=== PATIENT | female | born 1995 | race Caucasian/White ===

== ENCOUNTER 2018-12-04 14:38 | Emergency (ER) | payer BC ==
[2018-12-04] MEDS ORDERED: IPRATROPIUM/ALBUTEROL 3 ML DEYVIAL ONE (15:12)
[2018-12-04] MEDS ORDERED: methylPREDNISolone SOD SUCC 125 MG/2 ML VIAL ONE (15:48)
[2018-12-04] MEDS ORDERED: ALBUTEROL 3 ML DEYVIAL ONE (15:49)
[2018-12-04] MEDS ORDERED: NS 1,000 ML IV ONE (17:59)
[2018-12-04] MEDS ORDERED: ALBUTEROL 3 ML DEYVIAL IH ONE (18:00)
[2018-12-04] MEDS ORDERED: OSELTAMIVIR PHOSPHATE 75 MG CAP PO ONE ×2 (18:00→19:32)
--- NOTE | 2018-12-04 18:01 | EDPHY ---
H & P Stated Complaint: SOB, wheezing Time Seen by Provider: 12/04/18 15:00 HPI/ROS: CHIEF COMPLAINT: Shortness of breath x3 days HISTORY OF PRESENT ILLNESS: 23-year-old female with a history of asthma presents reporting that she has been short of breath and wheezing for the last 3 days. She arrived in [place] 4 days ago. She reports feeling nauseous and vomiting when she got off the plane from [place] which she thinks might have been related to some anxiety. Flying typically will make her somewhat anxious. For the last 3 days a been skiing up at [place], but the patient has been progressively more short of breath. She has a cough, congestion, questionable fever. She reports she has been using her inhaler 3-4 times each day with minimal relief. No diarrhea. No urinary complaints. No lightheadedness. Mild chest tightness. REVIEW OF SYSTEMS: A comprehensive 10 system review of systems was reviewed and is otherwise negative aside from elements mentioned in the history of present illness and medical decision making. PAST MEDICAL HISTORY: Asthma. Allergic to shellfish, pollen, and dander. LMP 1 week ago. SOCIAL HISTORY: Nonsmoker. Occasional marijuana, rare alcohol. Of note patient became engaged last night. VITAL SIGNS Reviewed by me. Tachycardic, O2 sat 91% on room air. GENERAL: Well-developed, well-nourished, somewhat tachypneic in appearance. Very congested-sounding. HEENT: Atraumatic. Eyes: No icterus, no injection. Mouth: Dry lips. Moist mucous membranes. No erythema or lesions. Neck: supple with no adenopathy. LUNGS: Significant wheezing throughout, left upper lobe worse than others. CARDIAC: Tachycardic but regular. ABDOMEN: Soft, nontender, nondistended, bowel sounds normal. BACK: No CVA tenderness. EXTREMITIES: No trauma. No edema. Range of motion is normal throughout. NEURO: Alert and oriented, grossly nonfocal. SKIN: Warm and dry, no rash. PSYCHIATRIC: Normal mentation, no agitation. - Personal History Current Tetanus Diphtheria and Acellular Pertussis (TDAP): Unsure - Medical/Surgical History Hx Asthma: Yes Hx Chronic Respiratory Disease: No Hx Diabetes: No Hx Cardiac Disease: No Hx Renal Disease: No Hx Cirrhosis: No Hx Alcoholism: No Hx HIV/AIDS: No Hx Splenectomy or Spleen Trauma: No Other PMH: asthma - Social History Smoking Status: Never smoked Constitutional: Initial Vital Signs Temperature (C) 37.8 C 12/04/18 14:40 Heart Rate 116 H 12/04/18 14:40 Respiratory Rate 18 12/04/18 14:40 Blood Pressure 125/66 H 12/04/18 14:40 O2 Sat (%) 91 L 12/04/18 14:40 O2 Delivery Mode Room Air Allergies/Adverse Reactions: No Known Allergies Allergy (Unverified 12/04/18 17:38) Home Medications: Medication Instructions Recorded Albuterol 5 mg/ml INH [Proventil] 12/04/18 Oseltamivir Phosphate [Tamiflu 75 75 mg PO BID #10 cap 12/04/18 mg (*)] predniSONE 40 mg PO DAILY #6 tab 12/04/18 Medical Decision Making - Diagnostics Imaging Results: Xray: Chest x-ray was obtained. I viewed the images myself on the PACS system. My interpretation of the images is: Consistent with airways disease and viral infection, no pneumonia. The radiology interpretation is: Agrees. I discussed the results with the patient. Imaging: Discussed imaging studies w/ will call clerk Radiologist, I viewed and interpreted images myself ED Course/Re-evaluation: 23-year-old female presents emergency department with asthma exacerbation. She is originally from [place]. She has been sick with upper respiratory infection symptoms as well for several days. Patient was immediately treated with a DuoNeb, and 2 albuterol nebs. Solu- Medrol 125 mg given. She received a L of normal saline. Normal white count, some leukopenia, normal chemistries. Chest x-ray without infiltrate. Re-examined at 510pm, remains tachycardic at 120s with diffuse wheezes. Additional L of normal saline ordered as well as additional neb. Patient's influenza A is positive. Discussed this at length with the patient and her boyfriend. I offer her admission to the hospital. They have a flight back to [place] tomorrow morning and she is reluctant to stay in the hospital. We will provide 3rd L of normal saline as well as additional neb treatment. Patient was reexamined at 7:30 p.m.. She remains somewhat tachycardic. Heart rate is around 105 on my examination. Again offered hospital admission. She would prefer to hydrate on own tonight, take tamiflu and return home [place] tomorrow. Aware that she may return to the hosptial at any time tonight or tomorrow if she is feeling poorly. DCd with prednisone and tamiflu scripts. Differential Diagnosis: Differential diagnosis for the patient's shortness of breath was considered including but not limited to pulmonary infectious processes, asthma exacerbation, pulmonary emboli, pulmonary edema, congestive heart failure, influenza A or B, and cardiac causes. - Data Points Laboratory Results: Laboratory Results 12/04/18 15:35 12/04/18 15:35 Medications Given: Discontinued Medications Albuterol (Proventil Neb) 3 ml IH EDNOW ONE Stop: 12/04/18 18:01 Last Admin: 12/04/18 19:24 Dose: Not Given Sodium Chloride (Ns) 1,000 mls @ 0 mls/hr IV ONCE ONE PRN Reason: Wide Open Stop: 12/04/18 18:00 Last Admin: 12/04/18 19:24 Dose: Not Given Oseltamivir Phosphate (Tamiflu) 75 mg PO EDNOW ONE Stop: 12/04/18 18:01 Last Admin: 12/04/18 19:25 Dose: Not Given Oseltamivir Phosphate (Tamiflu) 75 mg PO EDNOW ONE Stop: 12/04/18 19:33 Last Admin: 12/04/18 19:35 Dose: 75 mg Prednisone (Prednisone) 40 mg PO EDNOW ONE Stop: 12/04/18 19:31 Last Admin: 12/04/18 19:35 Dose: 40 mg Departure - Departure Disposition: Home, Routine, Self-Care Clinical Impression: Influenza A Exacerbation of asthma Qualifiers: Asthma severity: moderate Asthma persistence: persistent Qualified Code(s): J45.41 - Moderate persistent asthma with (acute) exacerbation Condition: Fair Instructions: Prednisone (By mouth), Oseltamivir (By mouth), Asthma (ED), Influenza (ED) Additional Instructions: Please drink plenty of fluid. Get plenty of rest. Control your fever with Tylenol and ibuprofen. Tylenol 650-1000 mg every 4-6 hours. Ibuprofen 600 mg with food every 6-8 hours. Please use your meter dose inhaler often to help with her shortness of breath. 2-4 puffs every 3-4 hours. Take the Tamiflu as directed. 75 mg by mouth 2 times a day for 5 days. Take the prednisone as directed. 40 mg by mouth each day for the next 3 days. Follow-up upon return to [place]. Return to the emergency department or seek care urgently if you're worse despite the above measures. Wear your mask while on the plane. Referrals: JANNET HARKINS [Other] - As per Instructions Prescriptions: Oseltamivir Phosphate [Tamiflu 75 mg (*)] 75 mg PO BID #10 cap predniSONE 40 mg PO DAILY #6 tab
[2018-12-04 19:13] VITALS: BP 134/69
[2018-12-04] MEDS ORDERED: predniSONE 20 MG TAB ONE (19:29)
[2018-12-04] MEDS ORDERED: OSELTAMIVIR PHOSPHATE 75 MG CAP ONE (19:29)
[2018-12-04] MEDS ORDERED: predniSONE 20 MG TAB PO ONE (19:30)
[2018-12-04 20:12] LABS: PLATELET COUNT 181 10^3/uL (150-400)
== END 2018-12-04 20:00 | disposition home or self-care (01) ==
LOC: EDBD 14:38
DX: J45.41 Moderate persistent asthma with (acute) exacerbation (principal); J10.1 Influenza due to other identified influenza virus with other respiratory manifestations
CPT/HCPCS: 96374; J2930; J7512; J7613